=== PATIENT | female | born 1965 | race Caucasian/White ===

== ENCOUNTER 2016-07-04 11:00 | Emergency (ER) | payer MEDICAID ==
--- NOTE | 2016-07-04 11:27 | ED Physician Chart ---
Chief Complaint/HPI - Patient Information Date Seen:: 07/04/16 Time Seen:: 11:20 Chief Complaint:: low back pain History of Present Illness:: low back pain started one month ago when she jerked her back pushing against someone who was moving a generator. Pain radiates down right leg to right foot. Denies bladder and bowel problems. Allergies:: Allergies Allergy/AdvReac Type Severity Reaction Status Date / Time MDX No Known Allergies - Nka Allergy Verified 10/16/14 17:39 [No Known Allergies - Nka] Historian:: Patient Review:: Nurse's Note Reviewed Review of Systems - Review of Systems General/Constitutional: No fever, No chills Skin: No skin lesions, No bruising Head: No headache, No light-headedness Eyes: No loss of vision, No diplopia ENT: No earache, No sore throat Neck: No neck pain, No thyromegaly Cardio Vascular: No chest pain Pulmonary: No SOB, No cough GI: No nausea, No vomiting G/U: No dysuria, No frequency Musculoskeletal: Bone or joint pain, Back pain, Muscle pain Psychiatric: No prior psych history, No depression Hematopoietic: No bruising Allergic/Immuno: No urticaria Neurological: No syncope, No focal symptoms Past Medical History - Past Medical History Past Medical History: HTN Family History: None Social History: Smoker, No Alcohol Surgical History: None Psychiatricy History: None Medication: None Family Medical History - Family Member Mother History Unknown: Yes Physical Exam - Physical Examination General/Constitutional: Well-developed, well-nourished, Alert, No distress Head: Atraumatic Eyes: Lids, conjuctiva normal, PERRL Skin: Nl inspection, No rash, No skin lesions, No ecchymosis ENMT: External ears, nose nl Neck: No nuchal rigidity Respiratory: Nl effort/Exclusion, Clear to Auscultation, No Wheeze/Rhonchi/Rales Cardio Vascular: RRR, No murmur, gallop, rubs GI: No tenderness/rebounding/guarding : No CVA tenderness Extremities: Normal digits & nails Other Extremities comments:: straight leg raising of 90 degrees bilaterally Neuro/Psych: Alert/oriented, DTR's symmetric, No focal deficits Other Neuro/Psych comments:: DTRs knees 1/4, ankles 2/4 Labs/Radiology/EKG Results - Lab Results Results: Laboratory Results - last 24 hr 07/04/16 07/04/16 11:48 11:48 Urine Source [place] Urine Color YELLOW Urine Clarity CLEAR Urine pH 5.5 Ur Specific [place] 1.010 Urine Protein NEGATIVE Urine Glucose (UA) NEGATIVE Urine Ketones NEGATIVE Urine Blood MODERATE H Urine Nitrate NEGATIVE Urine Bilirubin NEGATIVE Urine Urobilinogen 0.2 Ur Leukocyte Esterase LARGE H Urine RBC 5-10 H Urine WBC 6-10 H Ur Epithelial Cells MODERATE Urine Bacteria MODERATE Urine Trichomonas FEW H Urine Test NEGATIVE - Radiology Results Results: lumbar spine: scoliosis; mild arthritis; disc narrowing L3L4 ED Septic Shock - . Is Septic Shock (SBP<90, OR Lactate>4 mmol\L) present?: No Reassessment (Disposition) - Reassessment Reassessment Condition:: Improved - Diagnosis Diagnosis:: low back pain - Aftercare/Follow up Instructions Medication Prescribed:: [place] 10/325 #20 Sig 1/2-1 QID; Ibuprofen 400 mg #30 Sig 1 TID with meals - Patient Disposition Discharge/Transfer:: Home Condition at Disposition:: Stable, Unchanged
[2016-07-04 12:02] LABS: URINE BILIRUBIN NEGATIVE (NEGATIVE); URINE BLOOD MODERATE (NEGATIVE); URINE COLOR YELLOW; URINE GLUCOSE (UA) NEGATIVE (NEGATIVE); URINE KETONE NEGATIVE (NEGATIVE); URINE PH 5.5; URINE PROTEIN NEGATIVE (NEGATIVE); URINE UROBILINOGEN 0.2 E.U./dL (0.2 - 1.0)
[2016-07-04 12:15] LABS: URINE BACTERIA MODERATE /hpf (NONE SEEN); URINE EPITHELIAL CELLS MODERATE /lpf (FEW)
--- NOTE | 2016-07-04 16:05 | Diagnostic Imaging Report ---
Lumbar spine (3 views) HISTORY: Pain There is a scoliosis of the thoracolumbar spine convexity to the left. Marked narrowing of the L2-3, 34, and L4-5 interspaces. Narrowing the L5 interspace. Air is seen within the interspace L5-S1 reflecting degenerative disc disease. No acute abnormalities. Atherosclerotic calcification noted in the region of the aortic bifurcation. IMPRESSION: 1. Scoliosis 2. Relatively severe degenerative changes 3. Atherosclerotic vascular changes
== END 2016-07-04 13:40 | disposition home or self-care (01) ==
LOC: ER 11:00
DX: M54.5 Low back pain (principal); I10 Essential (primary) hypertension; F17.200 Nicotine dependence, unspecified, uncomplicated
CPT/HCPCS: 99285; 96372; 72100; 81001; 81025; J1885